=== PATIENT | female | born 1955 | race American Indian/Alaskan Native ===

== ENCOUNTER 2016-10-11 07:50 | Outpatient (CLI) | payer BC ==
[2016-10-11] MEDS ORDERED: NACL ONE (08:11)
[2016-10-11 08:35] LABS: Blood Urea Nitrogen 12 mg/dL (7-17)
--- NOTE | 2016-10-11 09:48 | Cat Scan Report ---
CTA CHEST INDICATION: Chest pain. COMPARISON: None similar at this institution. FINDINGS: Chest CTA performed following intravenous administration of 100 cc of Omnipaque 350. Rotational MIP's also obtained. Normal heart size. No effusions. No aortic aneurysm, dissection or suspicious pulmonary arterial filling defects to the extent assessed, though somewhat suboptimal peak pulmonary arterial opacification achieved. No size significant adenopathy, though right hilar lymphoid soft tissue approximately 9 mm as on axial image 138, series 2. Normal airway. Unremarkable thyroid. Slight bibasilar atelectasis or scarring and a tiny left upper lobe pneumatocele. Otherwise clear lungs. Slight asymmetric right breast thickening inferiorly as on axial images 105-125, series 2. Images through included upper abdomen reveal no significant abnormality. Thoracolumbar levoscoliosis incompletely imaged. Additional multilevel thoracic spine degenerative spurring. CONCLUSION: No CT evidence of pulmonary embolism, to the extent assessed with various other incidental findings, including mild nonspecific right breast skin thickening inferiorly, amongst others, as described. Please correlate. Thank you for the opportunity to participate in this patient's care.
== END 2016-10-11 07:51 | disposition home or self-care (01) ==
LOC: CT 07:50
PROVIDERS: ATTEND Internal Medicine Cardiovascular Disease
DX: J98.4 Other disorders of lung (principal); R07.81 Pleurodynia; R07.9 Chest pain, unspecified; M41.85 Other forms of scoliosis, thoracolumbar region
CPT/HCPCS: 36415; 71275; 82565; 84520; Q9967